=== PATIENT | female | born 1935 | race Caucasian/White ===

== ENCOUNTER 2024-04-15 17:00 | Emergency (ER) | payer MEDICARE, SELFPAY ==
[2024-04-15 17:02] VITALS: BP 143/75; PULSE 87; RESP 16; TEMP 36.3; O2SAT 98
--- NOTE | 2024-04-15 17:25 | EKG12_ITS ---
Test Reason : Blood Pressure : / mmHG Vent. Rate : 070 BPM Atrial Rate : 070 BPM P-R Int : 168 ms QRS Dur : 080 ms QT Int : 388 ms P-R-T Axes : 056 042 019 degrees QTc Int : 419 ms Sinus rhythm with marked sinus arrhythmia Otherwise normal ECG Confirmed by MADHAVI YEPEZ, IVA ([id number]), deputy editor in chief RC VALLE ([id number]) on 04/19/2024 2:00:13 PM Referred By: Confirmed By:SHANTELL HENDRICKSON MD
--- NOTE | 2024-04-15 17:25 | CT_ITS ---
STUDY: CT BRAIN WITHOUT CONTRAST REASON FOR EXAM: Female, 89 years old. Headache RADIATION DOSAGE (If Supplied By Facility): CTDIvol = ( 44.99 ) mGy, DLP = ( 796.11 ) mGycm TECHNIQUE: Transaxial CT imaging of the brain was performed without administration of intravenous contrast material. Individualized dose optimization techniques were used for this CT. COMPARISON: No relevant priors. FINDINGS: Normal soft tissue structures. Normal calvarium. Normal size ventricles and extra-axial spaces for the patient''s age. Normal white matter tracts of the cerebral hemispheres. Normal basal ganglia and thalami. Normal brainstem. Normal cerebellum. There is no intracranial hemorrhage. There are no findings of an acute ischemic infarction. Normal visualized paranasal sinuses. CT/Brain/Head without Contrast IMPRESSION: No acute intracranial pathology of the brain. Electronically Signed: Joseph Snyder DO at 19:35 EDT ,
[2024-04-15 17:45] VITALS: PULSE 73; RESP 21; O2SAT 96
--- NOTE | 2024-04-15 17:48 | ED.RN ---
PT C/O DIZZINESS AND NAUSEA
--- NOTE | 2024-04-15 17:49 | EX.ED.DYSGE1 ---
HPI History of Present Illness Chief Complaint: Dizziness Informant: patient Narrative Narrative: 89-year-old female states she has a history of vertigo. For this she takes meclizine. She states her prescription was about 3 years old. She has been having this intermittent room spinning with a fast component to the right intermittently for about a week. She states she has been trying the meclizine and will help for a little while but her symptoms come back particularly when she ambulates. The patient states she feels a pressure in the top of her head like my head is going to explode. She notes associated nausea. She called her doctor's office today to see if she can get a refill of her meclizine and they advised her because of the headache that she may want to come to the hospital. Patient denies any new medications. No fevers. [facility] Medical History Vertigo Thyroid disease Cardiac disease Home Medications ?Medication ?Instructions ?Recorded ?Last Taken ?Type famotidine 10 mg tablet (Pepcid AC) 10 mg PO DAILY PRN PRN ACID 08/04/14 08/30/14 05:15 History furosemide 20 mg tablet 20 mg PO DAILY PRN PRN Swelling 08/04/14 Unknown History glycopyrrolate 1 mg tablet 1 mg PO DAILY PRN PRN Abdominal 08/04/14 Unknown History Pain levothyroxine 75 mcg tablet 75 mcg PO DAILY 08/04/14 09/01/14 06:00 History melatonin 3 mg tablet 3 mg PO PRN PRN Sleep 08/04/14 Unknown History metformin 500 mg tablet 500 mg PO DAILY 08/04/14 09/01/14 07:44 History metoprolol tartrate 50 mg tablet 50 mg PO BID 08/04/14 09/01/14 10:01 History aspirin 81 mg tablet,delayed 81 mg PO DAILY ##1 08/31/14 Unknown Rx release naproxen sodium 220 mg tablet 220 mg PO BID PRN PRN Pain Or Fever 09/01/14 Unknown History (Aleve) hydrocodone-acetaminophen 5-325mg 1 - 2 tab PO Q4H PRN PRN Moderate 09/05/14 Unknown Rx 5mg-325mg Pain (4-6/10) ##20 lisinopril 2.5 mg tablet 2.5 mg PO DAILY ##30 09/05/14 Unknown Rx rivaroxaban 10 mg tablet (Xarelto) 10 mg PO DAILY ##4 09/05/14 Unknown Rx sennosides 8.6 mg-docusate sodium 2 tab PO BID ##120 09/05/14 Unknown Rx 50 mg tablet (Stool Softener-Stimulant Laxative) meclizine 25 mg tablet 25 mg PO 4X/DAY PRN PRN Dizziness 04/15/24 Unknown Rx #20 tabs scopolamine base 1 mg over 3 days 1 patch transdermal Q3D PRN 04/15/24 Unknown Rx transdermal patch dizziness or vertigo #4 ea Allergy/AdvReac Type Severity Reaction Status Date / Time No Known Allergies Allergy Verified 04/15/24 17:01 Social History Smoking Status: Former smoker ROS ROS ED Constitutional Constitutional ED: Denies chills or weight loss Eyes Eyes: Denies change in vision or diplopia ENT ENT ED: Denies ear pain, rhinorrhea or sore throat Cardiovascular Cardiovascular: Denies chest pain, orthopnea, palpitations or racing heartbeat Respiratory/Chest Respiratory/Chest: Denies cough, dyspnea or orthopnea Gastrointestinal Gastrointestinal: Reports nausea; Denies abdominal pain, diarrhea or vomiting Genitourinary Genitourinary ED: Denies dysuria, hematuria or urinary frequency Musculoskeletal Musculoskeletal: Denies arthralgias or myalgias Integumentary Denies abscess or rash Neurologic Neurologic: Reports headache(s) and other Details: Dizziness (room spinning) ; Denies weakness Psychiatric Psychiatric: Denies anxiety, depression, suicidal ideation or suicidal thoughts Endocrine Endocrinology: Denies polydipsia, polyphagia or polyuria Allergic/Immunologic Allergic/Immunologic ED: Denies mouth swelling, tongue swelling or urticaria EXAM Physical Exam Const Vital Signs: 04/15/24 17:02 04/15/24 17:45 04/15/24 19:01 Temperature 97.3 F L Temperature Source Temporal Pulse Rate 87 73 85 Respiratory Rate 16 21 H 18 Blood Pressure 143/75 H 169/74 H Blood Pressure Mean 97 105 Pulse Ox 98 96 97 Oxygen Delivery Method Room Air Room Air Room Air 04/15/24 20:32 Temperature 98.2 F Temperature Source Pulse Rate 65 Respiratory Rate 18 Blood Pressure 161/66 H Blood Pressure Mean 97 Pulse Ox 97 Oxygen Delivery Method Positive well nourished and well developed General Appearance ED: well developed HEENT Reports normocephalic, head/scalp atraumatic and moist mucous membranes Eyes PERRL and EOMs intact bilaterally Neck no lymphadenopathy, supple and no JVD Resp normal respiratory effort and clear to auscultation bilaterally Cardio regular rate, regular rhythm and no murmurs GI normal to inspection, nondistended, normoactive bowel sounds and non-tender Palpation: soft Back/Spine no CVA tenderness and normal ROM Extremity normal to inspection General Extremety ED: Negative for edema General Extremity: Negative for edema Neuro oriented x3 and CN's II-XII intact bilaterally Sensorium / Orientation: alert Motor Exam: strength 5/5 throughout Psych mental status grossly normal Mood & Affect: Negative for depressed or tearful Skin no rashes or lesions noted and no wounds MDM MDM MDM Narrative Medical decision making narrative: Differential diagnosis includes vertigo vertebral artery dissection aneurysm posterior circulatory stroke Abnormalities basic blood work essentially negative creatinine 1.03 glucose 166. Urinalysis negative. My independent interpretation of the chest x-ray is no acute process. Initial head CT negative. Patient received a dose of Valium and later meclizine as the Valium did not help her. Patient feels good enough that be able to go home. She can try scopolamine patch and I will also write for some more meclizine. The patient understands follow-up. I am also can write for her to have instructions on self repositioning technique. Patient and family understand the plan is comfortable with History & Record Review Discussion w/independent historian: Patient and Family Lab Data Attestation: I reviewed the patient's lab results. Labs: Laboratory Results - last 24 hr 04/15/24 04/15/24 17:37 19:11 WBC 10.4 RBC 4.77 Hgb 14.6 Hct 42.5 MCV 89.1 MCH 30.6 MCHC 34.4 RDW Std Deviation 37.3 RDW Coeff of Amna 11.6 Plt Count 254 MPV 10.2 Immature Gran % (Auto) 0.400 Neut % (Auto) 64.9 Lymph % (Auto) 24.2 [place] % (Auto) 7.9 Eos % (Auto) 2.1 Baso % (Auto) 0.5 Absolute Neuts (auto) 6.8 Absolute Lymphs (auto) 2.52 Nucleated RBC % 0 Sodium 137 Potassium 3.8 Chloride 101 Carbon Dioxide 28.0 Anion Gap 8 BUN 20 H Creatinine 1.03 H Est GFR (MDRD) Af Amer 65 Est GFR (MDRD) Non-Af 54 L BUN/Creatinine Ratio 19.4 Glucose 166 H Calcium 9.2 Total Bilirubin 0.30 Direct Bilirubin 0.10 AST 16 ALT 18 Alkaline Phosphatase 103 Troponin I High Sens 6 Total Protein 7.5 Albumin 3.2 Globulin 4.3 H Lipase 25 Urine Color Yellow Urine Clarity Clear Urine pH 6.0 Ur Specific [place] 1.015 Urine Protein Negative Urine Glucose (UA) Normal Urine Ketones Negative Urine Occult Blood Negative Urine Nitrite Negative Urine Bilirubin Negative Urine Urobilinogen Normal Ur Leukocyte Esterase 25 H Urine RBC 0 SEEN Urine WBC 0-5 SEEN Ur Squamous Epith Cells 0-5 SEEN Urine Bacteria 0 SEEN Hyaline Casts 10-25 SEEN Urine Mucus 0 SEEN Radiography Diagnostic Testing: Clinical Impression(s) from Imaging Studies Brain CT 04/15/24 17:25 IMPRESSION: No acute intracranial pathology of the brain. Electronically Signed: Joseph Snyder DO at 19:35 EDT Reading Location ID and State: [facility] / [place] Tel [phone], Service support , Chest X-Ray 04/15/24 17:55 IMPRESSION: No radiographic evidence of acute cardiopulmonary disease. Electronically Signed: Joseph Snyder DO at 20:15 EDT , EKG Initial EKG: Attestation: I personally reviewed and interpreted this EKG as follows: Comments: Normal sinus rhythm with ventricular rate of 70 bpm Discharge Plan Triage Chief Complaint: Dizziness ED Provider: Edmundo Juarez Dx/Rx/DC Orders Clinical Impression: Dizziness, Nausea Instructions: ED BPV Vertigo, ED Dizziness, Uncertain Cause Prescriptions: New scopolamine base 1 mg over 3 days patch 3 day 1 patch transdermal Q3D PRN (Reason: dizziness or vertigo) Qty: 4 0RF meclizine 25 mg tablet 25 mg PO 4X/DAY PRN PRN (Reason: Dizziness) Qty: 20 0RF No Action glycopyrrolate 1 MG tablet 1 mg PO DAILY PRN PRN (Reason: Abdominal Pain) Patient Comments: FOR IBS metformin 500 MG tablet 500 mg PO DAILY Patient Comments: diabetes famotidine [Pepcid AC] 10 MG tablet 10 mg PO DAILY PRN PRN (Reason: ACID) Patient Comments: acid reflex melatonin 3 MG tablet 3 mg PO PRN PRN (Reason: Sleep) Patient Comments: sleep levothyroxine 75 MCG tablet 75 mcg PO DAILY Patient Comments: thyroid med metoprolol tartrate 50 MG tablet 50 mg PO BID Patient Comments: TAKES 50 MG AM AND 25 MG PM, blood pressure furosemide 20 MG tablet 20 mg PO DAILY PRN PRN (Reason: Swelling) Patient Comments: water pill aspirin 81 MG tablet 81 mg PO DAILY Qty: 1 0RF Patient Comments: prevent stroke, heart attack Rx Instructions: DO NOT TAKE WITH XARELTO naproxen sodium [Aleve] 220 MG tablet 220 mg PO BID PRN PRN (Reason: Pain Or Fever) Patient Comments: 1-2 TABS. inflammation and pain hydrocodone-acetaminophen 1 TABLET tablet 1 - 2 tab PO Q4H PRN PRN (Reason: Moderate Pain (4-6/10)) Qty: 20 0RF sennosides-docusate sodium [Stool Softener-Stimulant Laxat] 1 TABLET tablet 2 tab PO BID Qty: 120 0RF lisinopril 2.5 MG tablet 2.5 mg PO DAILY Qty: 30 0RF rivaroxaban [Xarelto] 10 MG tablet 10 mg PO DAILY Qty: 4 0RF Primary Care Provider: GLORIA BURGOS APRN, FNP-C Referrals: Matt Jiménez DO [Non-Staff] - 3-5 Days if not improving Print Language: Pashto Disposition Disposition: Home, Self Care Discharge Date/Time: 04/15/24 20:45
[2024-04-15] MEDS: diazePAM 5 MG Tablet 2.5 MG PO (17:54)
--- NOTE | 2024-04-15 17:55 | RAD_ITS ---
INDICATION: hypertension EXAMINATION/TECHNIQUE: X-RAY - XR Chest 1 View COMPARISON: FINDINGS: LINES/DEVICES: None. LUNGS: No consolidation, edema or effusion. No pneumothorax. MEDIASTINUM AND CARDIOVASCULAR STRUCTURES: Cardiac silhouette not enlarged. Calcified aortic arch. Central airways and mediastinal contour are unremarkable. BONES AND SOFT TISSUES: Degenerative vertebral changes. RAD/Chest 1 View (Portable) IMPRESSION: No radiographic evidence of acute cardiopulmonary disease. Electronically Signed: Joseph Snyder DO at 20:15 EDT ,
[2024-04-15 17:56] LABS: Absolute Lymphocyte Count 2.52 X10^3/uL (0.83-4.51); Absolute Neutrophil Count 6.8 X10^3/uL (2.0-7.7); Basophil# 0.05 X10^3/uL; Basophil% 0.5 % (0-1); Eosinophil# 0.22 X10^3/uL; Eosinophils% 2.1 % (0-5); Hematocrit 42.5 % (37-47); Hemoglobin 14.6 g/dL (12.0-15.0); Lymphocyte # 2.52 X10^3/ul (0.83-4.51); Lymphocyte % 24.2 % (19-41); Mean Corp Hgb Conc 34.4 g/dL (32-36); Mean Corpuscular Hgb 30.6 pg (27.0-32.0); Mean Corpuscular Volume 89.1 fL (81-99); Mean Platelet Vol. 10.2 fl (6.2-12.0); Monocyte# 0.82 X10^3/uL; Monocyte% 7.9 % (0-10); NRBC Flagged by Analyzer 0 % (0-5); Neutrophil # 6.76 X10^3/uL (2.7-7.7); Neutrophil % 64.9 % (47-70); Platelet Count 254 K/mm3 (150-450); RBC Distribution Width CV 11.6 % (11.6-14.6); RBC Distribution Width SD 37.3 fl (35.1-43.9); Red Blood Count 4.77 M/mm3 (4.2-5.4); White Blood Count 10.4 K/mm3 (4.4-11.0)
[2024-04-15 18:17] LABS: AST(SGOT) 16 U/L (15-37); Alanine Aminotransfer ALT/SGPT 18 U/L (13-56); Albumin, Serum 3.2 g/dL (3.2-5.0); Alkaline Phosphatase 103 U/L (45-117); Anion Gap 8 (5-15); BUN 20 mg/dL (7-18); BUN/Creat Ratio 19.4 RATIO (10-20); Calcium,Total 9.2 mg/dL (8.5-10.1); Chloride 101 mmol/L (98-107); Creatinine, Serum 1.03 mg/dL (0.55-1.02); EST Glomerular Filtration Rate 54 mL/min (>60); Est Glom Filt Rate - Afr Amer 65 mL/min (>60); Globulin 4.3 g/dL (2.2-4.2); Glucose 166 mg/dL (74-106); Lipase 25 U/L (13-75); Potassium 3.8 mmol/L (3.5-5.1); Protein, Total 7.5 g/dL (6.4-8.2); Sodium Level 137 mmol/L (136-145); Troponin-I HS 6 pg/mL (3.0-54.0)
[2024-04-15 19:01] VITALS: BP 169/74; PULSE 85; RESP 18; O2SAT 97
[2024-04-15 19:16] LABS: Bacteria 0 SEEN /hpf (None Seen); Mucous, Urine 0 SEEN /hpf (<or=2+); Red Blood Cells-Urine 0 SEEN /hpf (0-5)
[2024-04-15 19:18] LABS: Color, Urine Yellow (Yellow); Glucose, Dipstick Normal (Normal); Ketone-Dipstick Negative (Negative); Leukocyte Esterase-Dipstick 25 /ul (Negative); Nitrite-Dipstick Negative (Negative); Occult Blood-Urine Negative /ul (Negative); Protein-Dipstick Negative (Negative); Specific Gravity, Urine 1.015 (1.002-1.030); Urine Bilirubin Dipstick Negative (Negative); Urine Clarity Clear (Clear); Urine Urobilinogen Normal (Normal)
[2024-04-15 19:23] LABS: Squamous Epithelial Cells - UA 0-5 SEEN /hpf (5-10); White Blood Cells 0-5 SEEN /hpf (0-5)
[2024-04-15 19:24] LABS: Hyaline Cast 10-25 SEEN /lpf (0-5)
[2024-04-15] MEDS: Meclizine HCl 25 MG Tablet PO (20:26)
[2024-04-15 20:32] VITALS: BP 161/66; PULSE 65; RESP 18; TEMP 36.8; O2SAT 97
== END 2024-04-15 20:45 | disposition home or self-care (01) ==
PROVIDERS: Emergency Provider Emergency Medicine; Visit Provider Emergency Medicine
DX: R42 Dizziness and giddiness (principal); R11.0 Nausea; Z87.891 Personal history of nicotine dependence
CPT/HCPCS: 70450; 71045; 80048; 80076; 81001; 83690; 84484; 85025; 93005; 99285; A4216

== ENCOUNTER 2024-07-12 12:50 | Emergency (ER) | payer MEDICARE, SELFPAY ==
[2024-07-12 12:51] VITALS: BP 149/108; PULSE 65; RESP 16; TEMP 36.1; O2SAT 98; BMI 32.3
--- NOTE | 2024-07-12 14:43 | ED.VIS.LOWEX ---
HPI History of Present Illness Chief Complaint: Lower Extremity Injury Narrative Narrative: 89-year-old female presents with right foot pain in her arch that she has had for at least 3 weeks. She denies any trauma. She states that she feels like her arch is falling. She has pain that is worse with walking and weightbearing. Denies other symptoms. She states that she saw her technical adjuster yesterday and they told her that she should have it evaluated. Essentially, she states she is here to get x-rays of her right foot. She states she tried arch supports, and changed her shoes, but she is still having pain. [facility] Medical History Vertigo Thyroid disease Cardiac disease Home Medications ?Medication ?Instructions ?Recorded ?Last Taken ?Type famotidine 10 mg tablet (Pepcid AC) 10 mg PO DAILY PRN PRN ACID 08/04/14 08/30/14 05:15 History furosemide 20 mg tablet 20 mg PO DAILY PRN PRN Swelling 08/04/14 Unknown History glycopyrrolate 1 mg tablet 1 mg PO DAILY PRN PRN Abdominal 08/04/14 Unknown History Pain levothyroxine 75 mcg tablet 75 mcg PO DAILY 08/04/14 09/01/14 06:00 History melatonin 3 mg tablet 3 mg PO PRN PRN Sleep 08/04/14 Unknown History metformin 500 mg tablet 500 mg PO DAILY 08/04/14 09/01/14 07:44 History metoprolol tartrate 50 mg tablet 50 mg PO BID 08/04/14 09/01/14 10:01 History aspirin 81 mg tablet,delayed 81 mg PO DAILY ##1 08/31/14 Unknown Rx release naproxen sodium 220 mg tablet 220 mg PO BID PRN PRN Pain Or Fever 09/01/14 Unknown History (Aleve) hydrocodone-acetaminophen 5-325mg 1 - 2 tab PO Q4H PRN PRN Moderate 09/05/14 Unknown Rx 5mg-325mg Pain (4-6/10) ##20 lisinopril 2.5 mg tablet 2.5 mg PO DAILY ##30 09/05/14 Unknown Rx rivaroxaban 10 mg tablet (Xarelto) 10 mg PO DAILY ##4 09/05/14 Unknown Rx sennosides 8.6 mg-docusate sodium 2 tab PO BID ##120 09/05/14 Unknown Rx 50 mg tablet (Stool Softener-Stimulant Laxative) meclizine 25 mg tablet 25 mg PO 4X/DAY PRN PRN Dizziness 04/15/24 Unknown Rx #20 tabs scopolamine base 1 mg over 3 days 1 patch transdermal Q3D PRN 04/15/24 Unknown Rx transdermal patch dizziness or vertigo #4 ea Allergy/AdvReac Type Severity Reaction Status Date / Time No Known Allergies Allergy Verified 07/12/24 12:51 Social History Smoking Status: Former smoker ROS ROS ED ROS Narrative Focused review of symptoms positive for pain in the right arch in the proximal area. It radiates up her right leg. No swelling. No recent trauma. EXAM Physical Exam Narrative Exam Narrative: Afebrile. Vital signs noted. Regular rate and rhythm. Lungs clear to auscultation bilaterally. Abdomen soft nontender with normoactive bowel sounds. Neurological examination nonfocal and nonlateralizing. There is mild tenderness palpation in the right proximal arch, no erythema. Palpable dorsalis pedis pulse. No malleoli or tenderness, no calf tenderness. Const Vital Signs: 07/12/24 12:51 Temperature 97 F L Temperature Source Temporal Pulse Rate 65 Respiratory Rate 16 Blood Pressure 149/108 H Blood Pressure Mean 121 Pulse Ox 98 Oxygen Delivery Method Room Air MDM MDM MDM Narrative Medical decision making narrative: Differential diagnosis includes but not limited to foot muscle strain versus ligamentous strain versus fracture. I have very low suspicion for DVT because the history and physical does not support this. Patient states she used to follow-up with a cancer registry coordinator, but no longer did after her became ill. I feel that she can follow-up with podiatry. On my individual interpretation of her right foot x-rays, I see no evidence of fracture but she has degenerative changes across the tarsal bones. 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 At this point in time, she was placed in a postoperative shoe and referred to podiatry. Return instructions to the emergency department were reviewed. I feel that [id number] medications are adequate for analgesia. Disposition is discharged home in stable condition. History & Record Review Discussion w/independent historian: Patient Radiography Diagnostic Testing: Clinical Impression(s) from Imaging Studies Foot X-Ray 07/12/24 14:50 IMPRESSION: Atrophic joint disease of the midfoot. Electronically Signed: Vijay Ibarra MD at 16:39 EDT , Discharge Plan Triage Chief Complaint: Lower Extremity Injury ED Provider: Filippo Redding Dx/Rx/DC Orders Clinical Impression: Foot pain, right, Arch pain of right foot, Strain of foot, right Instructions: ED Foot Sprain, ED Pain, Acute, Uncertain Cause Prescriptions: No Action glycopyrrolate 1 MG tablet 1 mg PO DAILY PRN PRN (Reason: Abdominal Pain) Patient Comments: FOR IBS metformin 500 MG tablet 500 mg PO DAILY Patient Comments: diabetes famotidine [Pepcid AC] 10 MG tablet 10 mg PO DAILY PRN PRN (Reason: ACID) Patient Comments: acid reflex melatonin 3 MG tablet 3 mg PO PRN PRN (Reason: Sleep) Patient Comments: sleep levothyroxine 75 MCG tablet 75 mcg PO DAILY Patient Comments: thyroid med metoprolol tartrate 50 MG tablet 50 mg PO BID Patient Comments: TAKES 50 MG AM AND 25 MG PM, blood pressure furosemide 20 MG tablet 20 mg PO DAILY PRN PRN (Reason: Swelling) Patient Comments: water pill aspirin 81 MG tablet 81 mg PO DAILY Qty: 1 0RF Patient Comments: prevent stroke, heart attack Rx Instructions: DO NOT TAKE WITH XARELTO naproxen sodium [Aleve] 220 MG tablet 220 mg PO BID PRN PRN (Reason: Pain Or Fever) Patient Comments: 1-2 TABS. inflammation and pain hydrocodone-acetaminophen 1 TABLET tablet 1 - 2 tab PO Q4H PRN PRN (Reason: Moderate Pain (4-6/10)) Qty: 20 0RF sennosides-docusate sodium [Stool Softener-Stimulant Laxat] 1 TABLET tablet 2 tab PO BID Qty: 120 0RF lisinopril 2.5 MG tablet 2.5 mg PO DAILY Qty: 30 0RF rivaroxaban [Xarelto] 10 MG tablet 10 mg PO DAILY Qty: 4 0RF scopolamine base 1 mg over 3 days patch 3 day 1 patch transdermal Q3D PRN (Reason: dizziness or vertigo) Qty: 4 0RF meclizine 25 mg tablet 25 mg PO 4X/DAY PRN PRN (Reason: Dizziness) Qty: 20 0RF Primary Care Provider: Robbie Wahl,Out of Referrals: Lazaro Ryder DPM [Med Staff - Active Staff] - As soon as possible [facility] Doctor,Out of [Primary Care Provider] - Print Language: Syriac Disposition Disposition: Home, Self Care
--- NOTE | 2024-07-12 14:50 | RAD_ITS ---
EXAM: XR RIGHT FOOT COMPLETE, 3 OR MORE VIEWS CLINICAL INDICATION: Pain TECHNIQUE: Frontal, lateral and oblique views of the right foot. COMPARISON: No relevant prior studies available. FINDINGS: BONES/JOINTS: Degenerative narrowing, bony sclerosis and hypertrophy noted along the tarsometatarsal joints raise the possibility of neurotrophic joint disease. No acute fracture or subluxation. SOFT TISSUES: Normal. No soft tissue swelling or gas. No radiopaque foreign body. RAD/Foot min 3 Views IMPRESSION: Atrophic joint disease of the midfoot. Electronically Signed: Vijay Ibarra MD at 16:39 EDT ,
== END 2024-07-12 16:55 | disposition home or self-care (01) ==
PROVIDERS: Emergency Provider Emergency Medicine; Visit Provider Emergency Medicine
DX: S96.911A Strain of unspecified muscle and tendon at ankle and foot level, right foot, initial encounter (principal); Z87.891 Personal history of nicotine dependence; X58.XXXA Exposure to other specified factors, initial encounter
CPT/HCPCS: 73630; 99283

== ENCOUNTER 2025-01-07 20:04 | Emergency (ER) | payer MEDICARE, SELFPAY ==
[2025-01-07 20:05] VITALS: BP 157/66; PULSE 88; RESP 18; TEMP 36.6; O2SAT 96; BMI 32.3
[2025-01-07 20:18] VITALS: O2SAT 95
--- NOTE | 2025-01-07 20:18 | EKG12_ITS ---
Test Reason : CP Blood Pressure : */* mmHG Vent. Rate : 84 BPM Atrial Rate : 84 BPM P-R Int : 152 ms QRS Dur : 76 ms QT Int : 372 ms P-R-T Axes : 61 45 -5 degrees QTcB Int : 439 ms Sinus rhythm with marked sinus arrhythmia Otherwise normal ECG Confirmed by GÉNESIS YEPEZ, ELISA ([id number]), editorial intern PATTI CHAIREZ ([id number]) on 01/09/2025 8:37:11 AM Referred By: Confirmed By: ELISA CAPPS MD
--- NOTE | 2025-01-07 20:27 | ED.VIS.CHEST ---
HPI History of Present Illness Chief Complaint: Chest Pain Informant: patient Onset/Context/Timing Onset: Weeks (About 10 days.) Activity at onset: gradual Timing: Intermittent Quality: Positive for Sharp Location: Left Parasternal Current Severity: Mild Maximum Severity: Mild Worsened By: Nothing Relieved By: Nothing Associated Symptoms: Negative for Nausea, Vomiting, Diaphoresis, Dyspnea, Cough, Fever, Lightheadedness, Acid Reflux or Palpitations Narrative Narrative: Well-appearing 89-year-old female. Sitting upright in bed. 2 family members at bedside. Vital signs are stable afebrile. Pulse ox 96% on room air no hypoxia. She is in no distress. Says her about 10 days she has had chest pain primarily below the left lateral rib cage. No shortness of breath. No nausea. No diaphoresis. No prior cardiac history. No prior cardiac cath or surgery. She has had stress test before she passed them. After knee surgery 1 time she did have blood clots in her lung. She is currently not on any blood thinners. Denies any recent travel, surgery or immobilization. No calf pain. No hemoptysis. She does not feel short of breath. This does not appear to be exertional. After the pain started she developed this nondescript rash below her left lateral rib cage. Denies any fever. Prior Similar Symptoms: No Recent Illness/Hospitalization: No CVD Risk Factors: Negative for Diabetes, Family History 1' </=55 or Smoking PE Risk Factors: Positive for Prior DVT or PE; Negative for Recent Travel/Surgery, Recent Immobilization, Cancer or OCP + Smoking + >/=35 TAD Risk Factors: Negative for Marfan's Syndrome [facility] Medical History Vertigo Thyroid disease Cardiac disease Home Medications ?Medication ?Instructions ?Recorded ?Last Taken ?Type famotidine 10 mg tablet (Pepcid AC) 10 mg PO DAILY PRN PRN ACID 08/04/14 08/30/14 05:15 History furosemide 20 mg tablet 20 mg PO DAILY PRN PRN Swelling 08/04/14 Unknown History glycopyrrolate 1 mg tablet 1 mg PO DAILY PRN PRN Abdominal 08/04/14 Unknown History Pain levothyroxine 75 mcg tablet 75 mcg PO DAILY 08/04/14 09/01/14 06:00 History melatonin 3 mg tablet 3 mg PO PRN PRN Sleep 08/04/14 Unknown History metformin 500 mg tablet 500 mg PO DAILY 08/04/14 09/01/14 07:44 History metoprolol tartrate 50 mg tablet 50 mg PO BID 08/04/14 09/01/14 10:01 History aspirin 81 mg tablet,delayed 81 mg PO DAILY ##1 08/31/14 Unknown Rx release naproxen sodium 220 mg tablet 220 mg PO BID PRN PRN Pain Or Fever 09/01/14 Unknown History (Aleve) hydrocodone-acetaminophen 5-325mg 1 - 2 tab PO Q4H PRN PRN Moderate 09/05/14 Unknown Rx 5mg-325mg Pain (4-/10) ##20 lisinopril 2.5 mg tablet 2.5 mg PO DAILY ##30 09/05/14 Unknown Rx rivaroxaban 10 mg tablet (Xarelto) 10 mg PO DAILY ##4 09/05/14 Unknown Rx sennosides 8.6 mg-docusate sodium 2 tab PO BID ##120 09/05/14 Unknown Rx 50 mg tablet (Stool Softener-Stimulant Laxative) meclizine 25 mg tablet 25 mg PO 4X/DAY PRN PRN Dizziness 04/15/24 Unknown Rx #20 tabs scopolamine base 1 mg over 3 days 1 patch transdermal Q3D PRN 04/15/24 Unknown Rx transdermal patch dizziness or vertigo #4 ea famciclovir 500 mg tablet 500 mg PO Q8H 7 days #21 tabs 01/07/25 Unknown Rx Allergy/AdvReac Type Severity Reaction Status Date / Time No Known Allergies Allergy Verified 01/07/25 20:07 Surgical History History of knee replacement Hx of cholecystectomy Social History Smoking Status: Former smoker ROS ROS ED ROS Narrative Atypical nonexertional chest pain. Upper abdominal rash on the left side. Constitutional Constitutional ED: Denies chills or fever(s) Eyes Eyes: Reports none ENT ENT ED: Denies ear pain Cardiovascular Cardiovascular: Reports as per HPI and chest pain; Denies palpitations or racing heartbeat Respiratory/Chest Respiratory/Chest: Denies cough, dyspnea or dyspnea on exertion Gastrointestinal Gastrointestinal: Denies abdominal pain, constipation, diarrhea, melena, nausea or vomiting Genitourinary Genitourinary ED: Denies dysuria or hematuria Musculoskeletal Musculoskeletal: Denies arthralgias or back pain Integumentary Denies abscess or Abrasions Neurologic Neurologic: Denies headache(s) Psychiatric Psychiatric: Denies anxiety or depression Endocrine Endocrinology: Denies cold intolerance Hematologic/Lymphatic Hematologic/Lymphatic: Denies easy bleeding or easy bruising Allergic/Immunologic Allergic/Immunologic ED: Denies mouth swelling, tongue swelling or urticaria EXAM Physical Exam Narrative Exam Narrative: Well-appearing 89-year-old female. Vital signs stable afebrile. Pulse ox 96% on room air no hypoxia. No distress. H EENT exam pupils round active light. Neck nontender. Lungs clear to auscultation bilaterally. Heart regular rhythm no murmur. Chest wall and ribs are nontender. Abdomen soft, nontender nondistended normal bowel sounds without peritoneal signs. Left upper abdominal wall there is a very mild rash. This could be early shingles but is not that distinct as of yet. She only on the left side is linear in appearance. It is red. Currently there is no significant vesicles. It does not look like cellulitis. There is no discharge or drainage. Moving all 4 extremities. Nontender. Calves are nontender. No cords. No significant edema. Trace maybe around both ankles. Normal motor strength. Neurologically she is awake alert. Answering questions following commands. Back nontender. Const Vital Signs: 01/07/25 20:05 01/07/25 20:18 01/07/25 20:18 Temperature 97.9 F Temperature Source Oral Pulse Rate 88 Respiratory Rate 18 Respiratory Effort Normal Blood Pressure 157/66 H Blood Pressure Mean 96 Pulse Ox 96 95 Oxygen Delivery Method Room Air Room Air Positive well nourished and well developed; Negative for cachectic, contractures or unkempt General Appearance ED: well developed; Negative for unkempt, cachectic, contractures or pallor Nutritional Appearance: Negative for cachectic HEENT Reports moist mucous membranes normocephalic and atraumatic Eyes PERRL and EOMs intact bilaterally General Eye ED: Negative for pale conjunctiva or scleral icterus Neck no lymphadenopathy, supple and no JVD Chest Wall inspection of chest normal and palpation of chest normal Chest: Negative for tenderness Resp normal respiratory effort and clear to auscultation bilaterally Effort and Inspection: Negative for respiratory distress Auscultation: Negative for rales, rhonchi, wheezes or diminished lung sounds Cardio regular rate, regular rhythm, S1 normal heart sound, S2 normal heart sound and no murmurs Rate: Negative for bradycardia or tachycardic Peripheral Pulses: pulses 2+ throughout GI normal to inspection, nondistended, normoactive bowel sounds, soft to palpation, non-tender, non-distended and no masses Back/Spine no CVA tenderness and no thoracic nor lumbar tenderness General Back: Negative for CVA tenderness Cervical Spine: Negative for cervical spine tenderness Extremity normal to inspection General Extremety ED: Negative for pulses abnormal or tenderness General Extremity: Negative for pulses abnormal Neuro oriented x3 and CN's II-XII intact bilaterally Sensorium / Orientation: awake, alert, oriented to person, oriented to place and oriented to time; Negative for confused, lethargic or stuporous Motor Exam: strength 5/5 throughout Psych mental status grossly normal Appearance: Negative for unkempt Attitude: No agitated Mood & Affect: Negative for depressed, anxious or tearful Skin No no rashes or lesions noted and no wounds Skin Narrative: Linear rash nondescript left upper abdomen could be early shingles but is not very prominent at this time. General Skin Exam: Negative for jaundice or pallor Rashes: No rashes noted Trauma: Negative for abrasion, laceration or puncture MDM MDM MDM Narrative Medical decision making narrative: 89-year-old female history of prior pulmonary emboli. No history of coronary disease or MIs. Atypical nonexertional chest pain for about 10 days. Recently developed a rash left upper abdomen that could be early shingles but is very nondescript at this time. She undergo cardiac workup with a D-dimer. Repeat exam patient is doing well at 9:01 PM. Patient doing well. The rash again on her upper abdomen could be a mild case of shingles. She says been there a week. She will be started on Famvir. Follow-up as needed. Return if worse. History & Record Review Discussion w/independent historian: Patient Additional record(s) reviewed:: Prior inpatient record, Prior outpatient record, Prior ED visit and Prior labs Lab Data Attestation: I reviewed the patient's lab results. Lab results narrative: CBC shows a white count of 10. H&H 11.6 and 33. Platelets 251. Electrolytes show a gap of 13. Normal BUN and creatinine at thirteen 0.8. Glucose 167. Troponin 14. D-dimer is 77. Adjusted for age is normal. Labs: Laboratory Results - last 24 hr 01/07/25 20:21 WBC 10.7 RBC 3.76 L Hgb 11.6 L Hct 33.1 L MCV 88.0 MCH 30.9 MCHC 35.0 RDW Std Deviation 37.8 RDW Coeff of Amna 11.9 Plt Count 251 MPV 10.6 Immature Gran % (Auto) 0.500 Neut % (Auto) 65.1 Lymph % (Auto) 22.7 Cowley % (Auto) 7.7 Eos % (Auto) 3.5 Baso % (Auto) 0.5 Absolute Neuts (auto) 7.0 Absolute Lymphs (auto) 2.42 Nucleated RBC % 0 Sodium 139 Potassium 3.3 Chloride 101 Carbon Dioxide 24.3 Anion Gap 13 BUN 13 Creatinine 0.86 Estim Creat Clear Calc 41.82 L Est GFR (MDRD) Non-Af 64 BUN/Creatinine Ratio 14.8 Glucose 167 H Calcium 9.1 Troponin T High Sens 14 Radiography Chest X-Ray - ED: 1 View, Read by ED Physician, Heart, Lungs, Mediastinum, Bony Structures, No Acute Disease and Chronic Changes Diagnostic Testing: Clinical Impression(s) from Imaging Studies Chest X-Ray 01/07/25 20:30 IMPRESSION: No Acute Findings. [facility] Chest x-ray, portable, single view interpreted by myself and radiology shows no acute abnormality. Normal cardiac silhouette. Normal lung roberts. Normal mediastinum. No pneumonia. No infiltrate. No effusions. Rhythm Strip Rhythm Strip: Sinus Rhythm Rate: 84 Ectopy: None EKG Initial EKG: Attestation: I personally reviewed and interpreted this EKG as follows: Interpretation: Sinus Rhythm and No Acute Injury Pattern Comments: Sinus rhythm with sinus arrhythmia. Rate 84. No acute signs of OH or ischemia. No ST Bashan or significant depression. Discharge Plan Triage Chief Complaint: Chest Pain ED Provider: Adriano Hernandez Dx/Rx/DC Orders Clinical Impression: Atypical chest pain, Rash, Shingles Instructions: ED Shingles (Herpes Zoster) Prescriptions: New famciclovir 500 mg tablet 500 mg PO Q8H 7 Days Qty: 21 0RF No Action glycopyrrolate 1 MG tablet 1 mg PO DAILY PRN PRN (Reason: Abdominal Pain) Patient Comments: FOR IBS metformin 500 MG tablet 500 mg PO DAILY Patient Comments: diabetes famotidine [Pepcid AC] 10 MG tablet 10 mg PO DAILY PRN PRN (Reason: ACID) Patient Comments: acid reflex melatonin 3 MG tablet 3 mg PO PRN PRN (Reason: Sleep) Patient Comments: sleep levothyroxine 75 MCG tablet 75 mcg PO DAILY Patient Comments: thyroid med metoprolol tartrate 50 MG tablet 50 mg PO BID Patient Comments: TAKES 50 MG AM AND 25 MG PM, blood pressure furosemide 20 MG tablet 20 mg PO DAILY PRN PRN (Reason: Swelling) Patient Comments: water pill aspirin 81 MG tablet 81 mg PO DAILY Qty: 1 0RF Patient Comments: prevent stroke, heart attack Rx Instructions: DO NOT TAKE WITH XARELTO naproxen sodium [Aleve] 220 MG tablet 220 mg PO BID PRN PRN (Reason: Pain Or Fever) Patient Comments: 1-2 TABS. inflammation and pain hydrocodone-acetaminophen 1 TABLET tablet 1 - 2 tab PO Q4H PRN PRN (Reason: Moderate Pain (4-6/10)) Qty: 20 0RF sennosides-docusate sodium [Stool Softener-Stimulant Laxat] 1 TABLET tablet 2 tab PO BID Qty: 120 0RF lisinopril 2.5 MG tablet 2.5 mg PO DAILY Qty: 30 0RF rivaroxaban [Xarelto] 10 MG tablet 10 mg PO DAILY Qty: 4 0RF scopolamine base 1 mg over 3 days patch 3 day 1 patch transdermal Q3D PRN (Reason: dizziness or vertigo) Qty: 4 0RF meclizine 25 mg tablet 25 mg PO 4X/DAY PRN PRN (Reason: Dizziness) Qty: 20 0RF Primary Care Provider: Mary Estevez Referrals: Mary Estevez, [employer] [Primary Care Provider] - 1 Week if not improving Town Doctor,Out of [Non-Staff] - Activity Restrictions/Additional Instructions: Your workup for a cardiac cause your chest pain or blood clot was negative. The rash on your abdomen could be a mild case of shingles. The antiviral Famvir 1 pill 3 times a day for a week. May help this go away quicker. Benadryl or calamine lotion to the rash. Follow-up with your primary care provider if not improving or return if worse. Print Language: [place]i Disposition Disposition: Home, Self Care
--- NOTE | 2025-01-07 20:30 | RAD_ITS ---
PROCEDURE: CHEST 1 VIEW (PORTABLE) 01/07/2025 REASON FOR EXAM: CHEST PAIN TECHNIQUE: Frontal view of the chest. COMPARISON: None FINDINGS: Hardware: None Heart: The heart size is normal. Lungs: The lungs are clear. Bones: The bones are unremarkable. Other: RAD/Chest 1 View (Portable) IMPRESSION: No Acute Findings. Reading Location: [facility]
[2025-01-07 20:36] LABS: Absolute Lymphocyte Count 2.42 X10^3/uL (0.83-4.51); Basophil# 0.05 X10^3/uL; Basophil% 0.5 % (0-1); Eosinophil# 0.37 X10^3/uL; Eosinophils% 3.5 % (0-5); Hematocrit 33.1 % (37-47); Hemoglobin 11.6 g/dL (12.0-15.0); Lymphocyte # 2.42 X10^3/ul (0.83-4.51); Lymphocyte % 22.7 % (19-41); Mean Corpuscular Hgb 30.9 pg (27.0-32.0); Mean Platelet Vol. 10.6 fl (6.2-12.0); Monocyte# 0.82 X10^3/uL; Monocyte% 7.7 % (0-10); NRBC Flagged by Analyzer 0 % (0-5); Neutrophil # 6.97 X10^3/uL (2.7-7.7); Neutrophil % 65.1 % (47-70); Platelet Count 251 K/mm3 (150-450); RBC Distribution Width CV 11.9 % (11.6-14.6); RBC Distribution Width SD 37.8 fl (35.1-43.9); Red Blood Count 3.76 M/mm3 (4.2-5.4); White Blood Count 10.7 K/mm3 (4.4-11.0)
[2025-01-07 20:54] LABS: Anion Gap 13 (5-15); BUN 13 mg/dL (4-19); BUN/Creat Ratio 14.8 RATIO (10-20); Calcium,Total 9.1 mg/dL (7.6-11.0); Carbon Dioxide 24.3 mmol/L (21.0-32.0); Chloride 101 mmol/L (98-108); Creatinine, Serum 0.86 mg/dL (0.70-1.20); EST Glomerular Filtration Rate 64 (>60); Estimated Creatinine Clearance 41.82 ml/min (50-250); Glucose 167 mg/dL (70-99); Potassium 3.3 mmol/L (3.3-5.1); Sodium Level 139 mmol/L (133-145); Troponin T High Sensitivity 14 ng/L (<=14)
[2025-01-07 20:59] LABS: D-Dimer Quantitative (DVT/PE) 0.77 FEU/ug/m (0.27-0.49)
[2025-01-07 21:07] VITALS: BP 184/85
[2025-01-07] MEDS: Acyclovir 800 MG Tablet PO (21:26)
[2025-01-07 21:30] VITALS: BP 167/78; PULSE 81; RESP 18; O2SAT 96
== END 2025-01-07 21:35 | disposition home or self-care (01) ==
PROVIDERS: Emergency Provider Emergency Medicine; PCP Nurse Practitioner Family; Visit Provider Emergency Medicine
DX: R07.89 Other chest pain (principal); B02.9 Zoster without complications; E07.9 Disorder of thyroid, unspecified; Z79.01 Long term (current) use of anticoagulants; Z79.82 Long term (current) use of aspirin; Z79.890 Hormone replacement therapy; Z79.899 Other long term (current) drug therapy; Z86.711 Personal history of pulmonary embolism; Z87.891 Personal history of nicotine dependence
CPT/HCPCS: 71045; 80048; 84484; 85025; 85379; 93005; 99284; A4216